=== PATIENT | male | born 1955 | race Caucasian/White ===

== ENCOUNTER 2017-06-30 17:38 | Inpatient (IN) | payer OTHER ==
[~2017-06-30] VITALS: Ht 172.7 cm; Wt 108.0 kg
--- NOTE | ~2017-06-30 | EKG ---
[address] [place] [address] ELECTROCARDIOGRAM REPORT Name: CIROGORDON Kingsley Room #: 201-P ADM IN M.R.#: [id number] Admission: 06/30/17 Attend Phys: Jian Otto MD Discharge: Date of : 57 Report #: [id number] THIS REPORT FOR: //name// [facility] Test Date: 2017-07-01 Test Time: 06:10:16 Pat Name: GORDON TANNER Department: Room: 201 P Gender: M Community Board Member: JESSIE : 1955 Requested By: Lavern Taylor Order Number: [id number] MD: Josiah Rowland Measurements Intervals [place] Rate: 68 P: 21 DE: 164 QRS: -54 QRSD: 135 T: -45 QT: 452 QTc: 481 Interpretive Statements Sinus rhythm Left bundle branch block No previous ECG available for comparison Electronically Signed On 07-01-2017 13:27:54 CDT by Josiah Rowland [email or web address] <ELECTRONICALLY SIGNED> By: Josiah Rowland MD, [facility] 07/01/17 1327 0610 9 Josiah Rowland MD, FACC /EPI
--- NOTE | ~2017-06-30 | EKG ---
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
--- NOTE | ~2017-06-30 | EKG ---
[address] [address] ELECTROCARDIOGRAM REPORT Name: GORDON TANNER Room #: 201-P ADM IN M.R.#: [id number] Admission: 06/30/17 Attend Phys: Jian Otto MD Discharge: Date of : 57 Report #: [id number] THIS REPORT FOR: //name// [facility] Test Date: 2017-07-01 Test Time: 11:26:39 Pat Name: GORDON TANNER Department: Room: 201 P Gender: M Planning Feeder: Justus LATHAM : 1955 Requested By: Ubaldo Mauricio Order Number: [id number] MD: Naseem Gallegos Measurements Intervals [place] Rate: 68 P: 58 OR: 166 QRS: -56 QRSD: 137 T: -52 QT: 456 QTc: 486 Interpretive Statements Sinus rhythm Left bundle branch block No previous ECG available for comparison Electronically Signed On 07-01-2017 14:01:34 CDT by Naseem Gallegos [email or web address] <ELECTRONICALLY SIGNED> By: Naseem Gallegos MD 07/01/17 1401 1126 25 Naseem Gallegos MD /ERUM
--- NOTE | ~2017-06-30 | HC ---
[facility] [place] [address] CONSULTATION Name: GORDON TANNER Room #: 201-P [facility] IN M.R.#: [id number] Admission: 06/30/17 Attend Phys: Jian Otto MD Discharge: 07/02/17 Date of : 57 Report #: [id number] THIS REPORT FOR: //name// CC: Jian Arcos DATE OF SERVICE: 07/01/2017 INDICATION: Chest pain. HISTORY OF PRESENT ILLNESS: This is a 62-year-old gentleman presenting with acute onset of left-sided chest pain radiating down the left arm. This occurred while he was driving. He felt mildly diaphoretic and dyspneic as well. The pain persisted in the ER. He was given aspirin with partial relief. He continued to have discomfort, was treated with pain medications without any effect. The ECG revealed sinus rhythm, nonspecific IVCD and T-wave inversions in the inferolateral leads. The initial troponin was negative, but the second troponin was elevated. He was started on IV heparin and nitroglycerin, with relief of symptoms. Presently, he denies any further chest pains. The peak troponin is 8.97. There is no history of fever or chills. PAST MEDICAL HISTORY: Ulcerative colitis. BPH status post TURP. Denies any history of diabetes mellitus or hypertension. ALLERGIES: CODEINE. MEDICATIONS: Humira subq twice a week. SOCIAL HISTORY: Negative for tobacco use. FAMILY HISTORY: Positive history for heart disease. REVIEW OF SYSTEMS: A full 10-point review of systems performed. Only the pertinent positives and negatives are described in the HPI. PHYSICAL EXAMINATION: INITIAL VITAL SIGNS: Blood pressure was 180/100, heart rate of 84 beats per minute. GENERAL APPEARANCE: A mildly overweight male in no acute respiratory distress. HEAD AND EYES: Normocephalic. Sclerae anicteric. ENT: Oral mucosa moist. NECK: Supple. LUNGS: CTA. CARDIAC: Regular rate and rhythm. S1, S2 positive. ABDOMEN: Soft. EXTREMITIES: No cyanosis, no edema. [facility] [address] [place] [address] CONSULTATION Name: GORDON TANNER Teetee Room #: 201-P [facility] IN M.R.#: [id number] Admission: 06/30/17 Attend Phys: Jian Otto MD Discharge: 07/02/17 Date of : 57 Report #: [id number] ECG reveals sinus rhythm, nonspecific IVCD, T-wave inversions in the inferolateral leads. LABORATORY VALUES: Peak troponin is 8.97. White count is 9.5, hemoglobin is 14.5, platelet count is 292, LDL is 172, creatinine is 1.2. IMPRESSION AND PLAN: 1. Non-ST elevation myocardial infarction. Given his presentation and acute onset, we discussed the pros and cons of noninvasive stress testing versus cardiac catheterization. We will proceed with a cardiac catheterization. 2. Hypertension, elevated blood pressure. We will start a beta desmond at this time. 3. Hypercholesterolemia, undiagnosed. Start statin therapy. 4. Ulcerative colitis, continue with Humira. <ELECTRONICALLY SIGNED> By: Ubaldo Mauricio MD 07/04/17 0840 0818 1231 Ubaldo Mauricio MD /nt
--- NOTE | ~2017-06-30 | EKG ---
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
--- NOTE | ~2017-06-30 | EKG ---
[place] [address] [facility] [place] [address] ELECTROCARDIOGRAM REPORT Name: DEMIANHUIGORDON Room #: 201-P DIS IN M.R.#: [id number] Admission: 06/30/17 Attend Phys: Jian Otto MD Discharge: 07/02/17 Date of : 57 Report #: [id number] THIS REPORT FOR: //name// [facility] Test Date: 2017-07-02 Test Time: 06:08:53 Pat Name: GORDON TANNER Department: Room: 201 P Gender: M General Office Clerk: jlanita : 1955 Requested By: Ubaldo Mauricio Order Number: [id number] MD: Josiah Rowland Measurements Intervals [place] Rate: 73 P: 21 PA: 156 QRS: -55 QRSD: 138 T: -60 QT: 442 QTc: 488 Interpretive Statements Sinus rhythm Left bundle branch block Compared to ECG 07/01/2017 11:26:39 No significant changes Electronically Signed On 07-03-2017 12:54:03 CDT by Josiah Rowland [email or web address] <ELECTRONICALLY SIGNED> By: Josiah Rowland MD, [facility] 07/03/17 1254 0608 0608 Josiah Rowland MD, [facility] /EPI
--- NOTE | ~2017-06-30 | CATHLAB ---
[facility] [address] [place] [address] INVASIVE PROCEDURE REPORT Name: GORDON TANNER Room #: 201-P ADM IN .R.#: [id number] Admission: 06/30/17 Attend Phys: Jian Otto MD Discharge: Date of : 57 Date of Service: 07/01/17 1216 Report #: [id number] THIS REPORT FOR: //name// APPROVED REPORT Study performed: 07/01/2017 09:25:36 Patient Details Patient Status: In-Patient Room #: The patient is a 62 year-old male Event Personnel Ubaldo Mauricio Healthcare Facility Administrator, Gabriel Lam RN, Silvestre Rich Partn[place], Nancy RTR, SECURITY FIELD SUPERVISOR Monitor Procedures Performed Art Access - R femoral artery* Left Heart Cath w/or w/o Coronaries [id number] [facility] BMS Place w/wo Plasty Single CIRC [id number] BMSSINGLE Hemostasis w/ Mynx Indication Non-STEMI , Dyspnea, Chest pain Risk Factors HypercholesterolemiaPhysical Activity, Hypertension Procedure Narrative The patient was brought urgently to the Cardiac Catheterization Laboratory and was prepped and draped in a sterile manner. The Right Groin^ was infiltrated with 1% Lidocaine subcutaneous anesthesia. A PINNACLE 4FR Sheath #[id number] sheath was inserted into the RFA^. Coronary angiography was performed using coronary diagnostic catheters. The right coronary system was accessed and visualized with a JR 4 catheter. The left coronary system was accessed and visualized with a JL 4 catheter. The left ventricle was accessed and visualized with a Pigtail catheter. Left ventricular/Aortic Valve gradient assessed via catheter pullback. Left ventriculogram was performed in PHAN projection. Pre-demployment femoral angiogram was performed . Closure device was deployed with a 6 Fr Mynx. The patient tolerated the procedure well and there were no complications associated with the procedure. There was no hematoma. Intraoperative Conscious Sedation Sedation start time: 09:31 Case end Time: 10:04 [facility] [address] [place] [address] INVASIVE PROCEDURE REPORT Name: GORDON TANNER Teetee Room #: 201-P [facility] IN .R.#: [id number] Admission: 06/30/17 Attend Phys: Jian Otto MD Discharge: Date of : 57 Date of Service: 07/01/17 1216 Report #: [id number] Fentanyl 50 mcg Versed 1.5 mg Fluoro Time: 9.00 minutes Dose: DAP 12632.30 cGycm2 2061 mGy Contrast Type and Amount: Omnipaque 180 ml Coronary Angiography The patient's coronary anatomy is right dominant. Diagnostic Cath Left Main Patent vessel, with no flow-limiting lesions. LAD Moderate size caliber vessel, traveling down the anterior wall and terminating at the apex. There is mild disease in the proximal and mid segments, 20%. Diagonal 1 Patent vessel, mild disease at the ostium. Diagonal 2 Patent vessel, with no flow-limiting lesions. Circumflex Moderate size caliber vessel, supplies 2 obtuse marginal arteries. After the takeoff of the first OM, there is a total occlusion in the midsegment. OM1 Moderate size caliber vessel, with mild disease in the proximal segment. Right Coronary There is moderate to severe stenosis in the mid segment, 70%. R PDA Small-caliber vessel with moderate diffuse disease in the proximal and distal segments, 50%. RPLV Small-caliber vessel, with no flow-limiting lesions. Left Ventriculography The left ventricle is normal in size with decreased contractility. The left ventricular ejection fraction is estimated to be 45%. There is hypokinesis of the mid to distal inferior wall. Hemodynamics The aortic pressure is 150/93 mmHg with a mean of 120 mmHg. The left ventricular pressure is 145/20 mmHg with a mean of mmHg. The left ventricular end diastolic pressure is 29 mmHg. PCI Technique Lesion Anticoagulation was achieved with Angiomax. Patient was preloaded with Brillinta. Percutaneous coronary intervention was performed on the mid circumflex artery segment. The lesion stenosis prior to intervention was 100% with LUZ MARIA 1 flow. A VISTA 6FR XB 3.5 #[id number] Guide Catheter was used to engage the ostium. A Luge Wire .014 x 182CM #[id number] Interventional Guidewire was used to cross the lesion. [facility] [address] [place] [address] INVASIVE PROCEDURE REPORT Name: GORDON TANNER Teetee Room #: 201-P [facility] IN M.R.#: [id number] Admission: 06/30/17 Attend Phys: Jian Otto MD Discharge: Date of : 57 Date of Service: 07/01/17 1216 Report #: [id number] BALLOON DILATION A Balloon catheter Euphora RX 2.5 x 15 #[id number] was inserted and inflated up to 8.00atm for 18seconds. Additional Inflation: 8.00atm for 9seconds. Additional Inflation: 8.00atm for 13seconds. STENT DEPLOYMENT A bare metal stent INTEGRITY RX 2.5 X 26 #[id number] was inserted and inflated up to 14.00atm for 20seconds. Final angiography reveals 10 % stenosis with LUZ MARIA 3 flow. Conclusion 1. Successful insertion of a bare metal stent into the total occlusion in the mid segment of the left circumflex artery, with catholic of LUZ MARIA-3 blood flow. 2. Moderate to severe stenosis in the RCA, recommend medical therapy. 3. Mild segmental LV dysfunction. 4. Recommend risk factor management and dual antiplatelet therapy. <ELECTRONICALLY SIGNED> By: Ubaldo Mauricio MD 07/01/17 1216 15 15 Ubaldo Mauricio MD /INF
[2017-06-30 17:39] VITALS: BP 182/120
[2017-06-30] MEDS ORDERED: HUMIRA40 MG/0.1 SUBQ (17:45)
[2017-06-30 18:04] LABS: ABSOLUTE NEUTROPHILS 6.2 thou/uL (1.4-8.2); BASOPHILS 0.2 % (0.0-2.0); EOSINOPHILS 0.5 % (0.0-3.0); HEMATOCRIT 44.5 % (42.0-52.0); HEMOGLOBIN 14.8 gm/dL (14.0-18.0); LYMPHOCYTES 37.4 % (24.0-44.0); MCH 29.5 pg (26.0-34.0); MCHC 33.3 g/dL (28.0-37.0); MCV 88.4 fL (80.0-100.0); MONOCYTES 7.8 % (1.0-8.0); PLATELET COUNT 340 thou/uL (150-400); POLYS 54.1 % (36.0-66.0); RBC 5.03 mil/uL (4.50-6.00); RDW 14.2 % (10.5-14.5); WBC 11.5 thou/uL (4.0-11.0)
[2017-06-30 18:09] LABS: ANION GAP 10 mmol/L (7-16); BUN 30 mg/dL (7-18); CALCIUM 9.3 mg/dL (8.5-10.1); CHLORIDE 101 mmol/L (98-107); CO2 26 mmol/L (21-32); CREATININE 1.2 mg/dL (0.7-1.3); GLUCOSE 123 mg/dL (74-106); SODIUM 137 mmol/L (136-145)
[2017-06-30 18:17] LABS: ALBUMIN 4.2 g/dL (3.4-5.0); MAGNESIUM 2.2 mg/dL (1.8-2.4); SGOT 24 U/L (15-37); SGPT 35 U/L (30-65); TOTAL BILIRUBIN 0.5 mg/dL (<0.1-1.0); TOTAL PROTEIN 8.6 g/dL (6.4-8.2); TROPONIN-I < 0.04 ng/mL (<0.06)
[2017-06-30 20:44] VITALS: BP 173/104
[2017-06-30 20:55] VITALS: BP 159/99
[2017-07-01] VITALS: BP 159/101
[2017-07-01 01:29] LABS: CHOLESTEROL 260 mg/dL (<200); HDL CHOLESTEROL 73 mg/dL (>40); LDL CHOLESTEROL 172 mg/dL (<100); TC:HDL 3.6 Ratio (Not establshd); TRIGLYCERIDE 75 mg/dL (<150); VLDL 15 mg/dL (<40)
[2017-07-01 01:34] LABS: SERUM ASSESSMENT Clear
[2017-07-01 03:03] VITALS: BP 156/102
[2017-07-01 03:08] LABS: HEMOGLOBIN 14.5 gm/dL (14.0-18.0); MCH 30.1 pg (26.0-34.0); MCHC 34.5 g/dL (28.0-37.0); MCV 87.2 fL (80.0-100.0); RBC 4.82 mil/uL (4.50-6.00); RDW 14.1 % (10.5-14.5); WBC 9.5 thou/uL (4.0-11.0)
[2017-07-01 05:30] VITALS: BP 124/82
[2017-07-01 07:02] VITALS: BP 139/94
[2017-07-01] MEDS ORDERED: TOPROL XL25 MG PO (10:23)
[2017-07-01] MEDS ORDERED: ATORVASTATIN CA40 MG PO (10:23)
[2017-07-01] MEDS ORDERED: ASPIR 8181 MG PO (10:23)
[2017-07-01] MEDS ORDERED: BRILINTA90 MG PO (10:23)
[2017-07-01 11:12] VITALS: BP 133/84
[2017-07-01 21:04] VITALS: BP 127/86
[2017-07-01 21:08] LABS: GLYCOHEMOGLOBIN (HGB A1C) 5.3 % (4.8-5.6)
[2017-07-02 04:41] LABS: ALBUMIN 3.3 g/dL (3.4-5.0); CALCIUM 8.9 mg/dL (8.5-10.1); POTASSIUM 4.4 mmol/L (3.5-5.1); TOTAL BILIRUBIN 0.8 mg/dL (<0.1-1.0)
[2017-07-02 04:52] VITALS: BP 109/71
[2017-07-02 05:10] LABS: TROPONIN-I 22.34 ng/mL (<0.06)
[2017-07-02 05:13] LABS: HEMATOCRIT 40.8 % (42.0-52.0); HEMOGLOBIN 13.7 gm/dL (14.0-18.0); MCH 29.7 pg (26.0-34.0); MCHC 33.6 g/dL (28.0-37.0); MCV 88.2 fL (80.0-100.0); RBC 4.63 mil/uL (4.50-6.00); RDW 14.2 % (10.5-14.5); WBC 8.8 thou/uL (4.0-11.0)
[2017-07-02 08:00] VITALS: BP 122/81
[2017-07-02 11:33] VITALS: BP 122/81
== END 2017-07-02 11:50 | disposition home or self-care (01) | DRG 248 ==
LOC: ER 17:38 → 2N 18:55 → EROBS 18:55 → 2N 20:14
PROVIDERS: Emergency Medicine; Internal Medicine Cardiovascular Disease; Nurse Practitioner Acute Care
DX: I21.4 Non-ST elevation (NSTEMI) myocardial infarction (principal); I50.31 Acute diastolic (congestive) heart failure; K51.90 Ulcerative colitis, unspecified, without complications; I10 Essential (primary) hypertension; E78.00 Pure hypercholesterolemia, unspecified; N40.0 Benign prostatic hyperplasia without lower urinary tract symptoms; Z87.81 Personal history of (healed) traumatic fracture; Z90.79 Acquired absence of other genital organ(s); Z88.5 Allergy status to narcotic agent; Z82.49 Family history of ischemic heart disease and other diseases of the circulatory system
CPT/HCPCS: 10081

== ENCOUNTER 2017-10-17 07:29 | Observation (INO) | payer OTHER ==
[~2017-10-17] VITALS: Ht 172.7 cm; Wt 113.9 kg
[2017-10-17] VITALS (7 sets, daily range): BP systolic 106–135; BP diastolic 60–90
--- NOTE | ~2017-10-17 | H ---
[facility] [place] [address] HISTORY AND PHYSICAL Name: GORDON TANNER Room #: 206-P [facility] M.R.#: [id number] Admission: 10/17/17 Attend Phys: Ubaldo Mauricio MD Discharge: Date of : 57 Report #: [id number] THIS REPORT FOR: //name// CC: Ubaldo Arcos DATE OF SERVICE: 10/17/2017 REASON: Scheduled cardiac catheterization. HISTORY OF PRESENT ILLNESS: This is a 62-year-old gentleman with history of CAD, ulcerative colitis, hypercholesterolemia and BPH, presenting with chest pains. He initially presented in 06/2017 with a non-ST elevation FL. He was found to have a total occlusion of the mid left circumflex artery, undergoing placement of a bare metal stent. There is a severe occlusion in the mid RCA. The patient developed issues with Brilinta secondary to dyspnea. Clinically, he has been experiencing symptoms of dyspnea on exertion and chest discomfort in the left lower chest area. A nuclear stress test in 07/2017 revealed incomplete infarct in the inferior wall with periinfarct ischemia. EF 47%. There is no history of fever, chills or congestion. He presents for an elective cardiac catheterization. ALLERGIES: BRILINTA AND CODEINE. MEDICATIONS: Include Humira, aspirin, Lipitor 40 mg, Plavix 75, and metoprolol 25 mg daily. PAST MEDICAL HISTORY: As above, non-ST elevation myocardial infarction, status post stent to the left circumflex artery. Borderline hypertension, hyperlipidemia, ulcerative colitis. SOCIAL HISTORY: Denies tobacco use. FAMILY HISTORY: Negative for premature CAD. REVIEW OF SYSTEMS: A full 10-point review of systems performed. Only the pertinent positives and negatives are described in the HPI. PHYSICAL EXAMINATION: VITAL SIGNS: Stable. GENERAL APPEARANCE: Overweight male, in no acute distress. HEENT: Normocephalic. Sclerae anicteric. NECK: Supple. LUNGS: Clear to auscultation. CARDIAC: Regular rate and rhythm, S1 and S2 positive. ABDOMEN: Soft, nontender. [facility] [address] [place] [address] HISTORY AND PHYSICAL Name: GORDON TANNER Room #: 206-[facility] M..#: [id number] Admission: 10/17/17 Attend Phys: Ubaldo Mauricio MD Discharge: Date of : 57 Report #: [id number] EXTREMITIES: No cyanosis, no edema. NEUROLOGIC: Alert and oriented x 3. ASSESSMENT AND PLAN: 1. Angina/dyspnea, will require a cardiac catheterization and possible angioplasty. 2. Hypercholesterolemia, continue with Lipitor. 3. Borderline hypertension, continue with the beta desmond. 4. Ulcerative colitis, stable. <ELECTRONICALLY SIGNED> By: Ubaldo Mauricio MD 10/18/17 0751 0830 0843 Ubaldo Mauricio MD /nt
--- NOTE | ~2017-10-17 | EKG ---
[address] [employer] [place] [address] ELECTROCARDIOGRAM REPORT Name: GORDON TANNER Room #: 206-[facility] M.R.#: [id number] Admission: 10/17/17 Attend Phys: Ubaldo Mauricio MD Discharge: Date of : 57 Report #: [id number] THIS REPORT FOR: //name// [facility] Test Date: 2017-10-18 Test Time: 06:09:27 Pat Name: GORDNO TANNER Department: Room: 206 P Gender: M Manager Of Learning: JESSIE : 1955 Requested By: Ubaldo Mauricio Order Number: [id number] MD: Josiah Rowland Measurements Intervals [place] Rate: 85 P: 43 DC: 164 QRS: -53 QRSD: 139 T: -46 QT: 396 QTc: 471 Interpretive Statements Sinus rhythm Left bundle branch block Baseline wander in lead(s) V6 Compared to ECG 10/17/2017 12:50:24 No significant changes Electronically Signed On 10-18-2017 8:40:55 CDT by Josiah Rowland [email or web address] <ELECTRONICALLY SIGNED> By: Josiah Rowland MD, [facility] 10/18/17 0840 8 8 Josiah Rowland MD, [facility] /EPI
--- NOTE | ~2017-10-17 | CATHLAB ---
[facility] [place] [address] INVASIVE PROCEDURE REPORT Name: GORDON TANNER Room #: 206-P ADM IN .R.#: [id number] Admission: 10/17/17 Attend Phys: Ubaldo Mauricio MD Discharge: Date of : 57 Date of Service: 10/17/17 1446 Report #: [id number] THIS REPORT FOR: //name// APPROVED REPORT Study performed: 10/17/2017 09:21:08 Patient Details Patient Status: Out-Patient Room #: The patient is a 62 year-old male Event Personnel Ubaldo Mauricio Supervisor Tank Storage, Arian Crow RN RN, Gabriel Lam RN, Brittany Suarez [place], Christine RTTeetee Monitor Procedures Performed Left Heart Cath w/or w/o Coronaries [id number] [facility] BMS Place w/wo Plasty Single RCA [id number] BMSSINGLE Indication Dyspnea, Unstable angina , Positive stress test, Chest pain Risk Factors Hypercholesterolemia, Coronary Artery DiseaseHypertension Previous Procedures/Diagnoses Previous PCI, Previous [place] Procedure Narrative The Right Groin^ was infiltrated with 1% Lidocaine subcutaneous anesthesia. A PINNACLE 4FR Sheath #[id number] sheath was inserted into the RFA^. Coronary angiography was performed using coronary diagnostic catheters. The right coronary system was accessed and visualized with a JR4 catheter. The left coronary system was accessed and visualized with a JL4 catheter. The left ventricle was accessed and visualized with a PIGTAIL catheter. Left ventricular/Aortic Valve gradient assessed via catheter pullback. Closure device was deployed with a 6 Fr MYNXGRIP 6/7F #[id number]. The patient tolerated the procedure well and there were no complications associated with the procedure. There was no hematoma. Intraoperative Conscious Sedation Sedation start time: 9.43 Case end Time: 10.50 [facility] [place] [address] [place] [address] INVASIVE PROCEDURE REPORT Name: GORDON TANNER Room #: 206-P ADM IN M.R.#: [id number] Admission: 10/17/17 Attend Phys: Ubaldo Mauricio MD Discharge: Date of : 57 Date of Service: 10/17/17 1446 Report #: [id number] Fentanyl 100 mcg Versed 2 mg Fluoro Time: 10.06 minutes Dose: DAP 31966.60 cGycm2 1905 mGy Contrast Type and Amount: Omnipaque 185 ml Coronary Angiography The patient's coronary anatomy is right dominant. Diagnostic Cath Left Main patent vessel, with no flow-limiting lesions. LAD There is mild to moderate diffuse disease in the proximal segment, 30-40%. Diagonal 1 Small-caliber vessel, with no flow-limiting lesions. Circumflex After supplying a moderate size OM1, there is a moderate stenosis in the mid segment, 40%. There is a stent in the midsegment, patent with mild restenosis. 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 OM1 Patent vessel, with no flow-limiting lesions. OM2 Patent vessel, with no flow-limiting lesions. Right Coronary Dominant vessel with ectatic areas in the proximal and mid segments. Between the 2 ectatic areas, there is a severe occlusion of 75%. R PDA Small-caliber vessel, with mild disease, 30%. RPLV Patent vessel, with no flow-limiting lesions. Left Ventriculography Left Ventriculography was not performed. An LVEDP was checked and there is no gradient across the outflow tract. Hemodynamics The aortic pressure is 124/86 mmHg with a mean of 101 mmHg. The left ventricular pressure is 131/17 mmHg with a mean of mmHg. The left ventricular end diastolic pressure is 23 mmHg. There was no gradient across the aortic valve upon pullback. Pullback from the left ventricle to the aorta revealed no gradient across the aortic valve. PCI Technique Lesion Anticoagulation was achieved with Angiomax. Patient was preloaded with Plavix. Percutaneous coronary intervention was performed on the mid right coronary artery. The lesion stenosis prior to intervention was 75% with LUZ MARIA 3 flow. A VISTA 6FR JR 4 #[id number] Guide Catheter was used to engage the ostium. A Luge Wire .014 x 182CM #[id number] Interventional Guidewire was used to cross the lesion. [facility] [address] [place] [address] INVASIVE PROCEDURE REPORT Name: CESARGORDON LUCAS Teetee Room #: 206-P [facility] IN M.R.#: [id number] Admission: 10/17/17 Attend Phys: Ubaldo Mauricio MD Discharge: Date of : 57 Date of Service: 10/17/17 1446 Report #: [id number] BALLOON DILATION A Balloon catheter Euphora RX 2.5 x 12 #[id number] was inserted and inflated up to 10.00atm for 24seconds. STENT DEPLOYMENT A bare metal stent INTEGRITY RX 3.0 X 15 #[id number] was inserted and inflated up to 10.00atm for 31seconds. POST STENT DEPLOYMENT BALLOON DILATION A Balloon catheter TREK NC RX 3.5 X 8 #[id number] was inserted and inflated up to 14.00atm for 21seconds. Additional Inflation: 12.00atm for 20seconds. Final angiography reveals 5 % stenosis with LUZ MARIA 3 flow. Conclusion 1. Successful insertion of a bare metal stent into the mid RCA stenosis. 2. Ectatic areas in the RCA. 3. Patent stent in the mid left circumflex artery with mild restenosis. 4. Recommend aggressive risk factor management and dual antiplatelet therapy. <ELECTRONICALLY SIGNED> By: Ubaldo Mauricio MD 10/17/17 1446 1446 1446 Ubaldo Mauricio MD /INF
--- NOTE | ~2017-10-17 | D ---
[facility] [place] [address] DISCHARGE SUMMARY Name: GORDON TANNER Room #: 206-P [facility] Martín D[place]#: [id number] Admission: 10/17/17 Attend Phys: Ubaldo Mauricio MD Discharge: 10/18/17 Date of : 57 Report #: [id number] THIS REPORT FOR: //name// CC: Ubaldo Arcos DATE OF SERVICE: 10/18/2017 FINAL DIAGNOSES: 1. Unstable angina, status post coronary angioplasty. 2. History of non-ST elevation myocardial infarction. 3. Hypercholesterolemia. 4. Ulcerative colitis. HOSPITAL COURSE: Please see the original H and P for full details. The patient presented with recurrent symptoms of bilateral arm discomfort. Please see the cardiac catheterization report for full details. The stent in the mid circumflex was patent, with evidence of coronary aneurysm. The LAD had mild disease. The RCA is an ectatic vessel in the proximal and mid segments. In between these segments, there is a severe stenosis, 70%. Given his recurrent symptoms, the patient underwent coronary angioplasty with placement of a bare metal stent. The patient tolerated the procedure without any complications. He does report feeling mildly dyspneic with exertion since his initial presentation 3 months ago during the [place]. The plan is to hold the low dose beta desmond at this time. We will have the patient follow up as an outpatient to assess any changes in his respiratory status. FINAL DISPOSITION: Aspirin 81 mg, Plavix 75 mg, Lipitor 40 mg daily and Humira for ulcerative colitis. <ELECTRONICALLY SIGNED> By: Ubaldo Mauricio MD 10/19/17 1006 0759 0848 Ubaldo Mauricio MD /nt
--- NOTE | ~2017-10-17 | EKG ---
[place] [address] [facility] [place] [address] ELECTROCARDIOGRAM REPORT Name: GORDON TANNER [id number] Admission: 10/17/17 Attend Phys: Ubaldo Mauricio MD Discharge: Date of : 57 Report #: [id number] THIS REPORT FOR: //name// [facility] Test Date: 2017-10-17 Test Time: 08:48:29 Pat Name: GORDON TANNER Department: Room: Gender: Seo Coordinator: Justus LATHAM : 1955 Requested By: Ubaldo Mauricio Order Number: [id number] MD: Josiah Rowland Measurements Intervals [place] Rate: 92 P: 1 RI: 162 QRS: -57 QRSD: 136 T: 7 QT: 392 QTc: 485 Interpretive Statements Sinus rhythm Left bundle branch block Compared to ECG 07/02/2017 06:08:53 No significant changes Electronically Signed On 10-17-2017 9:40:41 CDT by Josiah Rowland [email or web address] <ELECTRONICALLY SIGNED> By: Josiah Rowland MD, [facility] 10/17/17 0940 0848 0848 Josiah Rowland MD, FACC /EPI
--- NOTE | ~2017-10-17 | EKG ---
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
[~2017-10-17 07:29] MED LIST: ASPIR 8181 MG PO; ATORVASTATIN CA40 MG PO; BRILINTA90 MG PO; HUMIRA40 MG/0.1 SUBQ; TOPROL XL25 MG PO
[2017-10-17 08:10] LABS: HEMATOCRIT 44.5 % (42.0-52.0); HEMOGLOBIN 15.3 gm/dL (14.0-18.0); MCH 29.9 pg (26.0-34.0); MCHC 34.3 g/dL (28.0-37.0); MCV 87.2 fL (80.0-100.0); RBC 5.11 mil/uL (4.50-6.00); RDW 13.5 % (10.5-14.5); WBC 5.3 thou/uL (4.0-11.0)
[2017-10-17] MEDS ORDERED: PLAVIX 75 MG TA75 M1 PO (08:16)
[2017-10-17 08:20] LABS: CALCIUM 9.6 mg/dL (8.5-10.1); CREATININE 1.1 mg/dL (0.7-1.3); POTASSIUM 4.1 mmol/L (3.5-5.1)
[2017-10-18 03:22] LABS: HEMATOCRIT 43.6 % (42.0-52.0); MCH 29.7 pg (26.0-34.0); MCHC 34.4 g/dL (28.0-37.0); MCV 86.2 fL (80.0-100.0); RBC 5.06 mil/uL (4.50-6.00); RDW 13.5 % (10.5-14.5); WBC 4.9 thou/uL (4.0-11.0)
[2017-10-18 03:56] LABS: ALBUMIN 3.7 g/dL (3.4-5.0); ANION GAP 11 mmol/L (7-16); BUN 18 mg/dL (7-18); CALCIUM 9.4 mg/dL (8.5-10.1); CHLORIDE 102 mmol/L (98-107); CO2 26 mmol/L (21-32); GLUCOSE 93 mg/dL (74-106); SGOT 24 U/L (15-37); SGPT 53 U/L (30-65); SODIUM 139 mmol/L (136-145); TOTAL BILIRUBIN 0.6 mg/dL (<0.1-1.0); TOTAL PROTEIN 7.9 g/dL (6.4-8.2); TROPONIN-I <0.06 ng/mL (<0.06)
[2017-10-18 05:15] VITALS: BP 117/78
[2017-10-18 07:20] VITALS: BP 143/83
[2017-10-18 08:13] VITALS: BP 143/83
[2017-10-18 08:16] VITALS: BP 143/83
== END 2017-10-18 10:20 | disposition home or self-care (01) ==
LOC: CATH 07:29 → 2N 10:19 → CATH 11:32 → 2N 10-18 10:20
PROVIDERS: Internal Medicine Cardiovascular Disease
DX: I25.110 Atherosclerotic heart disease of native coronary artery with unstable angina pectoris (principal); I21.4 Non-ST elevation (NSTEMI) myocardial infarction; E78.5 Hyperlipidemia, unspecified; K51.90 Ulcerative colitis, unspecified, without complications; E78.00 Pure hypercholesterolemia, unspecified; R06.00 Dyspnea, unspecified; Z79.899 Other long term (current) drug therapy; Z95.5 Presence of coronary angioplasty implant and graft; Z79.01 Long term (current) use of anticoagulants

== ENCOUNTER → 2018-03-10 | Outpatient (CLI) | payer OTHER ==
[~2018-03-10] MED LIST changes: +IMDUR 30 MG TAB30 M1 PO; +LASIX 40 MG TAB40 M1 PO; +PLAVIX 75 MG TA75 M1 PO
--- NOTE | ~2018-03-10 | SLE ---
[facility] [place] [address] POLYSOMNOGRAPHY STUDY Name: GORDON TANNER Room #: REG [facility].#: [id number] Admission: 03/10/18 Attend Phys: Matt Whelan MD Discharge: Date of : 57 Report #: [id number] THIS REPORT FOR: //name// CC: Matt Arcos DATE OF SERVICE: 03/10/2018 ATTENDING PHYSICIAN: Dr. Ubaldo Mauricio. The patient is a 63-year-old who weighs 240 pounds and is 65 inches tall with a BMI of 39.9. The patient's Fl[place] score was 5. The patient underwent a sleep study at [facility]. During the night study, the patient spent 396 minutes in bed and slept for 272 minutes with a sleep efficiency of 68.7%. Sleep latency was 13.9 minutes with a REM latency of 84.9 minutes. Overall, sleep architecture showed normal stage 1 sleep, increased stage 2 sleep, reduced N3 sleep and normal REM sleep. During the night study, the patient has 5 obstructive apneas and 5 central apneas, no mixed apneas and 50 hypopneas. The patient's apnea hypopnea index was 13 per hour with a REM index of 28 per hour and a supine index of 73 per hour. EKG monitoring revealed average heart rate of 68 beats per minute. Normal sinus rhythm. However, PVCs were seen during the study. No sustained arrhythmias observed. Maximum heart rate was 90 beats per minute. PLMs were seen at an index of 7 per hour and 2 per hour caused EEG arousals. Nocturnal oximetry study revealed an average oxygen saturation of 94% with a lowest of 88%. Only 0.8 minutes were spent at oxygen saturation of less than 90%. Due to low AHI, the patient did not meet the split night criteria for CPAP initiation. IMPRESSION: 1. Mild sleep apnea-hypopnea syndrome with moderate increase during rapid eye movement sleep and further worsening during supine sleep. Total apnea hypopnea index 13 per hour, rapid eye movement apnea hypopnea index of 28.6 per hour and a supine apnea hypopnea index of 73 per hour. 2. No clinically significant nocturnal hypoxia. 3. No clinically significant periodic limb movements. [facility] [address] [place] [address] POLYSOMNOGRAPHY STUDY Name: GORDON TANNER Room #: REG [facility].#: [id number] Admission: 03/10/18 Attend Phys: Matt Whelan MD Discharge: Date of : 57 Report #: [id number] RECOMMENDATIONS: 1. The patient would benefit from treatment of sleep apnea with either oral appliance or a trial of CPAP titration. 2. If the patient undergoes CPAP titration, then he should be followed up in 4-6 weeks to assess compliance with CPAP and to document clinical improvement. 3. Avoid supine sleep. 4. Avoid INTERLOCKING AND SIGNAL MECHANIC depressants. 5. Cautioned regarding driving until symptoms of sleep apnea resolve with the above recommendations. <ELECTRONICALLY SIGNED> By: Matt Whelan MD 03/12/18 2126 1226 1247 Matt Whelan MD /nt
== END ==
LOC: SLEEPLAB 02-24 11:59
DX: G47.30 Sleep apnea, unspecified (principal)

== ENCOUNTER → 2018-11-09 | Outpatient (CLI) | payer OTHER ==
--- NOTE | 2018-11-09 10:42 | 2DMMODE ---
[facility] [place] [address] 2 D/M-MODE ECHOCARDIOGRAM Name: GORDON TANNER Room #: REG [facility]#: [id number] Admission: 11/09/18 Attend Phys: Ubaldo Mauricio MD Discharge: Date of : 57 Date of Service: 11/09/18 1041 Report #: [id number] THIS REPORT FOR: //name// APPROVED REPORT Study performed: 11/09/2018 09:39:44 EXAM: Comprehensive 2D, Doppler, and color-flow Echocardiogram Patient Location: Bedside/holding Status: routine BSA: 2.21 HR: 76 bpm BP: 138/75 mmHg Rhythm: NSR Other Information Study Quality: Adequate Technically limited study due to body habitus. Indications CAD Stent x2 2D Dimensions RVDd: 32.71 mm IVSd: 12.14 (7-11mm) LVOT Diam: 23.60 (18-24mm) LVDd: 55.16 mm PWd: 11.76 (7-11mm) Ascending Ao: 34.05 (22-36mm) LVDs: 46.72 (25-40mm) Aortic Root: 37.45 mm IVC: 21.00 mm Volumes Left Atrial Volume (Systole) Single Plane 4CH: 24.64 mL Single Plane 2CH: 22.52 mL LA ESV Index: 12.00 mL/m2 Aortic Valve AoV Peak Tyrone.: 1.11 m/s AO Peak Gr.: 7.03 mmHg LVOT Max P.16 mmHg LVOT Max V: 0.89 m/s [place] Vmax: 3.51 cm2 Mitral Valve [facility] [address] [address] 2 D/M-MODE ECHOCARDIOGRAM Name: GORDON TANNER Room #: REG CL [facility]#: [id number] Admission: 11/09/18 Attend Phys: Ubaldo Mauricio MD Discharge: Date of : 57 Date of Service: 11/09/18 1041 Report #: [id number] E/A Ratio: 0.6 MV Decel. Time: 204.58 ms MV E Max Tyrone.: 0.40 m/s MV A Tyrone.: 0.72 m/s MV PHT: 59.33 ms IVRT: 159.17 ms Pulmonary Valve PV Peak Tyrone.: 1.03 m/s PV Peak Gr.: 4.27 mmHg Pulmonary Vein P Vein S: 0.34 m/s P Vein A: 0.23 m/s P Vein D: 0.25 m/s P Vein A Dur.: 141.9 msec P Vein S/D Ratio: 1.36 Tricuspid Valve RAP Estimate: 5.00 mmHg Left Ventricle Left ventricle is at the upper limits of normal. Borderline concentric left ventricular hypertrophy. Left ventricular systolic function is moderately decreased. LVEF is 35-40%. Mild diastolic dysfunction is present (impaired relaxation pattern). Right Ventricle The right ventricle is normal size. The right ventricular systolic function is normal. Atria The left atrium size is normal. The right atrium size is normal. Aortic Valve The aortic valve is normal in structure. Trace aortic regurgitation. There is no aortic valvular stenosis. Mitral Valve The mitral valve is normal in structure. Trace to mild mitral regurgitation. No evidence of mitral valve stenosis. Tricuspid Valve The tricuspid valve is normal in structure. Trace tricuspid regurgitation. Unable to assess PA pressure. Pulmonic Valve The pulmonary valve is normal in structure. There is no pulmonic [facility] [address] [place] [address] 2 D/M-MODE ECHOCARDIOGRAM Name: GORDON TANNER Room #: REG CL [facility].#: [id number] Admission: 11/09/18 Attend Phys: Ubaldo Mauricio MD Discharge: Date of : 57 Date of Service: 11/09/18 1041 Report #: [id number] valvular regurgitation. Great Vessels The aortic root is normal in size. IVC is upper limits of normal in size and collapses >50% with inspiration. Pericardium There is no pericardial effusion. <Conclusion> Left ventricle is at the upper limits of normal. Borderline concentric left ventricular hypertrophy. Left ventricular systolic function is moderately decreased. Mild diastolic dysfunction is present (impaired relaxation pattern). The right ventricle is normal size. The left atrium size is normal. The aortic valve is normal in structure. Trace aortic regurgitation. Trace to mild mitral regurgitation. Trace tricuspid regurgitation. <ELECTRONICALLY SIGNED> By: Ubaldo Mauricio MD 11/09/18 1041 104 40 Ubaldo Mauricio MD /INF
== END ==
LOC: CV 09:15
DX: I34.0 Nonrheumatic mitral (valve) insufficiency (principal); Z95.5 Presence of coronary angioplasty implant and graft

== ENCOUNTER → 2019-05-18 | Outpatient (CLI) | payer OTHER ==
[~2019-05-18] MED LIST changes: +CARVEDILOL12.5 MG PO; +COZAAR 25 MG TA25 M2 PO; +LIPITOR40 MG PO; +METFORMIN HCL500 M3 PO
== END ==
LOC: NUC 05-02 07:30 → EDSTATUS 05-02 12:26 → NUC 05-02 13:23 → SJCVCIMAG 09:27
DX: R00.0 Tachycardia, unspecified (principal); I25.810 Atherosclerosis of coronary artery bypass graft(s) without angina pectoris; I42.9 Cardiomyopathy, unspecified; E78.00 Pure hypercholesterolemia, unspecified; I11.0 Hypertensive heart disease with heart failure; I50.9 Heart failure, unspecified; I25.2 Old myocardial infarction; Z95.1 Presence of aortocoronary bypass graft; Z88.5 Allergy status to narcotic agent; Z88.8 Allergy status to other drugs, medicaments and biological substances; Z79.82 Long term (current) use of aspirin; Z79.899 Other long term (current) drug therapy

== ENCOUNTER → 2019-05-29 | Outpatient (CLI) | payer OTHER ==
[~2019-05-29] VITALS: Ht 172.7 cm; Wt 115.0 kg
[2019-05-29 07:29] VITALS: BP 124/78
[2019-05-29 07:39] LABS: HEMATOCRIT 45.7 % (42.0-52.0); HEMOGLOBIN 15.1 gm/dL (14.0-18.0); MCH 29.8 pg (26.0-34.0); MCV 90.2 fL (80.0-100.0); RBC 5.07 mil/uL (4.50-6.00); RDW 13.6 % (10.5-14.5); WBC 6.5 thou/uL (4.0-11.0)
[2019-05-29 07:41] LABS: CALCIUM 9.9 mg/dL (8.5-10.1); CREATININE 1.2 mg/dL (0.7-1.3); POTASSIUM 3.9 mmol/L (3.5-5.1)
--- NOTE | 2019-05-29 08:32 | EKG ---
[facility] [place] [address] ELECTROCARDIOGRAM REPORT Name: GORDON TANNER Room #: REG [facility] M..#: [id number] Admission: 05/29/19 Attend Phys: Ubaldo Mauricio MD Discharge: Date of : 57 Report #: [id number] THIS REPORT FOR: cc: Sergei Arcos MD, Michael B. MD Lundgren,Josiah Tanner MD FAC ~ THIS REPORT FOR: //name// [facility] Test Date: 2019-05-29 Test Time: 07:24:18 Pat Name: GORDON TANNER Department: Room: Gender: Turn Down Worker: Justus LATHAM : 1955 Requested By: Ubaldo Mauricio Order Number: [id number] MD: Josiah Rowland Measurements Intervals [place] Rate: 80 P: -24 IN: 172 QRS: -54 QRSD: 145 T: 29 QT: 406 QTc: 469 Interpretive Statements Sinus rhythm Ventricular premature complex Left bundle branch block Compared to ECG 10/27/2017 17:08:13 Ventricular premature complex(es) now present Sinus tachycardia no longer present v Electronically Signed On 05-29-2019 8:31:34 STUDENT SUCCESS COACH by Josiah Rowland [email or web address] <ELECTRONICALLY SIGNED> By: Josiah Rowland MD, [facility] 05/29/19 0831 Josiah Rowland MD, [facility] /EPI
--- NOTE | 2019-05-29 17:33 | CATHLAB ---
[facility] [place] [address] INVASIVE PROCEDURE REPORT Name: GORDON TANNER Room #: REG JULIEN Colon.#: [id number] Admission: 05/29/19 Attend Phys: Ubaldo Mauricio MD Discharge: Date of : 57 Report #: [id number] THIS REPORT FOR: cc: Sergei Arcos MD, Michael B. MD Park, Jin S. MD ~ APPROVED REPORT Study performed: 05/29/2019 08:02:30 Patient Details Patient Status: Out-Patient Room #: The patient is a 64 year-old male Event Personnel Ubaldo Mauricio Stable Manager, Nanette Hirsch RN RN, Loly Fonseca RTR Elan Paredes Sherra RTTeetee Monitor Procedures Performed Art Access - R femoral artery* Left Heart Cath w/or w/o Coronaries [id number] [facility] [address] Initial Mod Sed Same Phys/QHP Gr5y 197130 74057 Mod Sed Same Phys/QHP Ea [id number] Indication Positive stress test, Chest pain Risk Factors Hypercholesterolemia, Coronary Artery DiseaseHypertension, Diabetes Previous Procedures/Diagnoses Previous PCI, Previous [place] Procedure Narrative The Right Groin^ was infiltrated with 1% Lidocaine subcutaneous anesthesia. A PINNACLE 4FR Sheath #[id number] sheath was inserted into the RFA^. Coronary angiography was performed using coronary diagnostic catheters. The right coronary system was accessed and visualized with a JR4 catheter. The left coronary system was accessed and visualized with a JL4 catheter. The left ventricle was accessed and visualized with a pigtail catheter. Hemostasis was obtained with manual pressure following sheath removal without any complications. The patient tolerated the procedure well and there were no complications associated with the procedure. There was no hematoma. [facility] [address] [place] [address] INVASIVE PROCEDURE REPORT Name: CESARLANCEGORDON ASHLYN Room #: REG CL [facility].#: [id number] Admission: 05/29/19 Attend Phys: Ubaldo Mauricio MD Discharge: Date of : 57 Report #: [id number] Intraoperative Conscious Sedation Sedation start time: 823 Case end Time: 914 Fentanyl 50 mcg Versed 1 mg Fluoro Time: 5.80 minutes Dose: DAP 6906.00 cGycm2 1776 mGy Contrast Type and Amount: Omnipaque 80 ml Coronary Angiography The patient's coronary anatomy is right dominant. Diagnostic Cath Left Main This is a large caliber vessel, patent with no flow-limiting lesions. LAD The LAD is a moderate size caliber vessel, traversing the anterior wall and wrapping around the apex. There is mild disease in the proximal and mid segments, 20%. Diagonal 1 This is a small to moderate size caliber vessel, with mild disease proximally. Diagonal 2 This is a small to moderate size caliber vessel, with mild disease proximally. Circumflex This is a moderate size caliber vessel, supplying 2 OM vessels. Within the mid segment of the left circumflex artery, there is a previously placed stent. The stent itself is patent with mild restenosis. Within the mid portion of the stent, there is an aneurysm. Appears to be slightly increased compared to his last catheterization approximately 2 years ago. OM1 This is a moderate size caliber vessel, patent with no flow-limiting lesions. OM2 This is a small to moderate size caliber vessel, with no flow-limiting lesions. Right Coronary The RCA is a dominant vessel with ectatic segments. There is a stent in the midsegment, patent with mild restenosis. R PDA This is a small to moderate size caliber vessel, with mild to moderate disease. RPLV This is a small to moderate size caliber vessel, with no flow-limiting lesions. Left Ventriculography Left Ventriculography was not performed. Ejection Fraction was 40% based off patient's Nuclear Cardiac Stress Test. An LVEDP was measured and there is no gradient across the outflow tract. [facility] [address] [place] [address] INVASIVE PROCEDURE REPORT Name: GORDON TANNER Room #: REG [facility].R.#: [id number] Admission: 05/29/19 Attend Phys: Ubaldo Mauricio MD Discharge: Date of : 57 Report #: [id number] Hemodynamics The aortic pressure is 125/79 mmHg with a mean of 80 mmHg. The left ventricular pressure is 129/13 mmHg with a mean of mmHg. The left ventricular end diastolic pressure is 21 mmHg. There was no gradient across the aortic valve upon pullback. Conclusion 1. There are patent stents in the mid left circumflex and mid RCA. 2. 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 3. There is mild disease in the LAD. 4. History of moderate cardiomyopathy. 5. Recommend aggressive risk factor management. 6. Recommend CV surgery consultation for aneurysm in the mid left circumflex artery. <ELECTRONICALLY SIGNED> By: Ubaldo Mauricio MD 05/29/19 1732 173 173 Ubaldo Mauricio MD /INF
== END | disposition home or self-care (01) ==
LOC: CATH 06:53
PROVIDERS: Internal Medicine Cardiovascular Disease
DX: R07.9 Chest pain, unspecified (principal); R94.39 Abnormal result of other cardiovascular function study; I25.10 Atherosclerotic heart disease of native coronary artery without angina pectoris; I25.41 Coronary artery aneurysm; I10 Essential (primary) hypertension; E11.9 Type 2 diabetes mellitus without complications; E78.00 Pure hypercholesterolemia, unspecified; I11.0 Hypertensive heart disease with heart failure; I50.9 Heart failure, unspecified; E78.5 Hyperlipidemia, unspecified; Z82.49 Family history of ischemic heart disease and other diseases of the circulatory system; Z87.442 Personal history of urinary calculi; N40.0 Benign prostatic hyperplasia without lower urinary tract symptoms; Z98.890 Other specified postprocedural states; Z87.19 Personal history of other diseases of the digestive system; Z88.6 Allergy status to analgesic agent; Z79.82 Long term (current) use of aspirin; Z79.899 Other long term (current) drug therapy

== ENCOUNTER → 2020-04-08 | Outpatient (CLI) | payer OTHER | LOC: SJCVCIMAG 06:42 | PROVIDERS: ATTEND Internal Medicine Cardiovascular Disease | DX: R94.31 Abnormal electrocardiogram [ECG] [EKG] (principal); I34.0 Nonrheumatic mitral (valve) insufficiency; I45.4 Nonspecific intraventricular block ==

== ENCOUNTER → 2020-04-18 | Outpatient (CLI) | payer OTHER | LOC: SJCVCIMAG 09:51 | PROVIDERS: ATTEND Internal Medicine Cardiovascular Disease | DX: R00.0 Tachycardia, unspecified (principal); I42.9 Cardiomyopathy, unspecified; I25.10 Atherosclerotic heart disease of native coronary artery without angina pectoris; I11.0 Hypertensive heart disease with heart failure; I50.9 Heart failure, unspecified; E78.5 Hyperlipidemia, unspecified; E11.9 Type 2 diabetes mellitus without complications; I25.2 Old myocardial infarction; Z79.4 Long term (current) use of insulin; Z79.82 Long term (current) use of aspirin; Z79.899 Other long term (current) drug therapy; Z98.61 Coronary angioplasty status ==

== ENCOUNTER → 2020-05-22 | Outpatient (CLI) | payer OTHER ==
[~2020-05-22] MED LIST changes: +RANEXA500 MG PO
== END ==
LOC: SJCVCIMAG 12:01
PROVIDERS: ATTEND Internal Medicine Cardiovascular Disease
DX: I65.23 Occlusion and stenosis of bilateral carotid arteries (principal)

== ENCOUNTER → 2020-05-23 | Outpatient (CLI) | payer OTHER ==
[~2020-05-23] VITALS: Ht 172.7 cm; Wt 116.0 kg
[2020-05-23 08:44] VITALS: BP 138/82
--- NOTE | 2020-05-23 12:38 | CATHLAB ---
[facility] [place] [address] INVASIVE PROCEDURE REPORT Name: GORDON TANNER Room #: REG JULIEN James.#: [id number] Admission: 05/23/20 Attend Phys: Ubaldo Mauricio MD Discharge: Date of : 57 Report #: [id number] THIS REPORT FOR: cc: Sergei Arcos MD, Michael B. MD Park, Jin S. MD ~ APPROVED REPORT Study performed: 05/23/2020 09:34:52 Patient Details Patient Status: Out-Patient Room #: The patient is a 65 year-old male Event Personnel Ubaldo Mauricio [employer], Geovanni Cardenas RTR Scrub, Jessica Ansari RTR Monitor, Greta Zapata RN RN, Roselia Hermosillo RN consultants intern Performed Art Access - R femoral artery* Left Heart Cath w/or w/o Coronaries [id number] [facility] [address] Initial Mod Sed Same Phys/QHP Gr5y 768962 34904 Mod Sed Same Phys/QHP Ea 824178 Hemostasis with Manual pressure Indication Dyspnea, Chest pain Risk Factors Obesity, Hypercholesterolemia, Coronary Artery DiseaseHypertension Previous Procedures/Diagnoses Previous PCI, Previous [place] Procedure Narrative The Right Groin^ was infiltrated with 1% Lidocaine subcutaneous anesthesia. A PINNACLE 4FR Sheath #[id number] sheath was inserted into the RFA^. Coronary angiography was performed using coronary diagnostic catheters. The right coronary system was accessed and visualized with a JR4 catheter. The left coronary system was accessed and visualized with a JL4 catheter. The left ventricle was accessed and visualized with a PIGTAIL catheter. Hemostasis was obtained with manual pressure following sheath removal without any complications. [facility] [address] [place] [address] INVASIVE PROCEDURE REPORT Name: CIROGORDON Room #: REG CL [facility]#: [id number] Admission: 05/23/20 Attend Phys: Ubaldo Mauricio MD Discharge: Date of : 57 Report #: [id number] There was no hematoma. Intraoperative Conscious Sedation Sedation start time: 951 Case end Time: 1040 Fentanyl 50 mcg Versed 1 mg Fluoro Time: 5.30 minutes Dose: DAP 2243.00 cGycm2 8692 mGy Contrast Type and Amount: Omnipaque 100 ml Coronary Angiography The patient's coronary anatomy is right dominant. Diagnostic Cath Left Main There is mild disease in the distal segment of the left main artery. LAD This is a moderate-sized caliber vessel, traverses the anterior wall and terminates at the apex. There is mild to moderate disease in the proximal and mid segments, 30 to 40%. Diagonal 1 This is a small to moderate-sized caliber vessel, with mild disease proximally. Diagonal 2 This is a small to moderate-sized caliber vessel, with mild disease proximally. Circumflex This is a moderate-sized caliber vessel, with a moderate stenosis in the midsegment, 40%. Just after the takeoff of the first OM, there is a stent in the mid segment, patent with minimal restenosis. Within the stented area there is a an aneurysm, unchanged from prior procedures. OM1 This is a moderate-sized caliber vessel, with no flow-limiting lesions. OM2 This is a small to moderate-sized caliber vessel, patent with no flow-limiting lesions. Right Coronary The RCA has ectatic regions in the midsegment. There is a stent in the midsegment with mild restenosis. R PDA This is a small to moderate-sized caliber vessel with moderate disease proximally. RPLV This is a small to moderate-sized caliber vessel, with no flow-limiting lesions. Left Ventriculography Left Ventriculography was not performed. Ejection Fraction was 35% based off patient's Echocardiogram. An LVEDP was measured and there is no gradient across the outflow tract. Hemodynamics The aortic pressure is 122/71 mmHg with a mean of 92 mmHg. [facility] [address] [place] [address] INVASIVE PROCEDURE REPORT Name: CESARLANCEGORDON Room #: REG CL M.R.#: [id number] Admission: 05/23/20 Attend Phys: Ubaldo Mauricio MD Discharge: Date of : 57 Report #: [id number] ventricular pressure is 140/7 mmHg with a mean of mmHg. The left ventricular end diastolic pressure is 18 mmHg. Conclusion 1. There is mild to moderate disease in the LAD. 2. There is a patent stent in the mid segment of the left circumflex artery, with a previously known aneurysm in the stented area. 3. There is a patent stent in the RCA with mild restenosis. 4. There is at least moderate cardiomyopathy. 5. Recommend guideline directed medical therapy and risk factor management. <ELECTRONICALLY SIGNED> By: Ubaldo Mauricio MD 05/23/20 1238 1238 1238 Ubaldo Mauricio MD /INF
== END | disposition home or self-care (01) ==
LOC: CATH 07:50
PROVIDERS: ATTEND Internal Medicine Cardiovascular Disease
DX: R07.9 Chest pain, unspecified (principal); R06.00 Dyspnea, unspecified; I25.10 Atherosclerotic heart disease of native coronary artery without angina pectoris; T82.855A Stenosis of coronary artery stent, initial encounter; I42.9 Cardiomyopathy, unspecified; I25.2 Old myocardial infarction; I10 Essential (primary) hypertension; E78.00 Pure hypercholesterolemia, unspecified; E66.9 Obesity, unspecified; N40.0 Benign prostatic hyperplasia without lower urinary tract symptoms; Z98.890 Other specified postprocedural states; Z79.899 Other long term (current) drug therapy; Z79.82 Long term (current) use of aspirin; Z88.8 Allergy status to other drugs, medicaments and biological substances

== ENCOUNTER → 2020-07-02 | Outpatient (CLI) | payer OTHER | LOC: MRI 08:04 | PROVIDERS: ATTEND Internal Medicine Cardiovascular Disease | DX: M48.02 Spinal stenosis, cervical region (principal); M25.78 Osteophyte, vertebrae; M50.30 Other cervical disc degeneration, unspecified cervical region ==

== ENCOUNTER → 2020-10-16 | Outpatient (CLI) | payer OTHER ==
[~2020-10-16] VITALS: Ht 172.7 cm; Wt 117.9 kg
[2020-10-16 13:59] VITALS: BP 126/65
--- NOTE | 2020-10-16 14:18 | NUR ---
Pain Clinic Assessment: 1. History of Osteoarthritis: Not Applicable History of Rheumatoid Arthritis: Not Applicable 2. Height: 5 ft. 8 in. 172.7 cm. Weight: 260.0 lb. oz. 117.936 kg. Patient's BMI: 39.5 3. Vital Signs: BP: 126/65 Pulse: 94 Resp: 20 Temp: 02 Sat: 98 ECG Mon: 4. Pain Intensity: 0 5. Fall Risk: Dizziness: N Needs help standing or walking: N Fallen in the last 3 months: N Fall risk comments: 6. Patient on Blood Thinner: None 7. History of Hypertension: Y 8. Opioid Therapy greater than 6 weeks: N Opiate Contract Signed: 9. Risk Assessment Tool Provided: 0 LOW RISK 10. Functional Assessment Tool: 11. Recreational Drug Use: Never Drug Type: Tobacco Use: Never Smoker Tobacco Type: Amount or Packs/day: How Many Years: Alcohol Use: Yes Frequency: Special Occasions Quant: 1
== END ==
LOC: PAIN 09:52
PROVIDERS: ATTEND Anesthesiology Pain Medicine
DX: M79.602 Pain in left arm (principal); M54.2 Cervicalgia; I25.10 Atherosclerotic heart disease of native coronary artery without angina pectoris; R06.09 Other forms of dyspnea; I10 Essential (primary) hypertension; Z88.5 Allergy status to narcotic agent; Z88.1 Allergy status to other antibiotic agents; Z72.89 Other problems related to lifestyle; Z79.899 Other long term (current) drug therapy; Z79.891 Long term (current) use of opiate analgesic

== ENCOUNTER → 2020-10-27 | Outpatient (CLI) | payer OTHER ==
[~2020-10-27] VITALS: Ht 172.7 cm; Wt 119.9 kg
[2020-10-27 09:43] VITALS: BP 142/99
--- NOTE | 2020-10-27 09:51 | NUR ---
Pain Clinic Assessment: 1. History of Osteoarthritis: Not Applicable History of Rheumatoid Arthritis: Not Applicable 2. Height: 5 ft. 8 in. 172.7 cm. Weight: 264.4 lb. oz. 119.931 kg. Patient's BMI: 40.2 3. Vital Signs: BP: 142/99 Pulse: 84 Resp: 20 Temp: 02 Sat: 100 ECG Mon: 4. Pain Intensity: 3 5. Fall Risk: Dizziness: N Needs help standing or walking: N Fallen in the last 3 months: N Fall risk comments: 6. Patient on Blood Thinner: None 7. History of Hypertension: Y 8. Opioid Therapy greater than 6 weeks: N Opiate Contract Signed: 9. Risk Assessment Tool Provided: 0 LOW RISK 10. Functional Assessment Tool: 11. Recreational Drug Use: Never Drug Type: Tobacco Use: Never Smoker Tobacco Type: Amount or Packs/day: How Many Years: Alcohol Use: Yes Frequency: Weekly Quant: 3
== END | disposition home or self-care (01) ==
LOC: PAIN 06:57
PROVIDERS: ATTEND Anesthesiology Pain Medicine
DX: M54.12 Radiculopathy, cervical region (principal); G89.29 Other chronic pain; I10 Essential (primary) hypertension; I25.10 Atherosclerotic heart disease of native coronary artery without angina pectoris; E78.5 Hyperlipidemia, unspecified; N40.0 Benign prostatic hyperplasia without lower urinary tract symptoms; Z98.890 Other specified postprocedural states; Z79.899 Other long term (current) drug therapy; Z87.442 Personal history of urinary calculi; Z88.6 Allergy status to analgesic agent; Z88.8 Allergy status to other drugs, medicaments and biological substances

== ENCOUNTER → 2020-11-27 | Outpatient (CLI) | payer OTHER ==
[~2020-11-27] VITALS: Ht 172.7 cm; Wt 120.3 kg
[2020-11-27 09:21] VITALS: BP 145/87
--- NOTE | 2020-11-27 09:29 | NUR ---
Pain Clinic Assessment: 1. History of Osteoarthritis: Not Applicable History of Rheumatoid Arthritis: Not Applicable 2. Height: 5 ft. 8 in. 172.7 cm. Weight: 265.2 lb. oz. 120.294 kg. Patient's BMI: 40.3 3. Vital Signs: BP: 145/87 Pulse: 77 Resp: 16 Temp: 02 Sat: 99 ECG Mon: 4. Pain Intensity: 0 5. Fall Risk: Dizziness: N Needs help standing or walking: N Fallen in the last 3 months: N Fall risk comments: 6. Patient on Blood Thinner: None 7. History of Hypertension: Y 8. Opioid Therapy greater than 6 weeks: N Opiate Contract Signed: 9. Risk Assessment Tool Provided: 0 LOW RISK 10. Functional Assessment Tool: 11. Recreational Drug Use: Never Drug Type: Tobacco Use: Never Smoker Tobacco Type: Amount or Packs/day: How Many Years: Alcohol Use: Yes Frequency: Special Occasions Quant:
== END ==
LOC: PAIN 08:45
PROVIDERS: ATTEND Anesthesiology Pain Medicine
DX: M54.13 Radiculopathy, cervicothoracic region (principal); Z79.82 Long term (current) use of aspirin; Z79.899 Other long term (current) drug therapy; Z88.8 Allergy status to other drugs, medicaments and biological substances

== ENCOUNTER → 2020-12-22 | Outpatient (CLI) | payer OTHER ==
[~2020-12-22] VITALS: Ht 172.7 cm; Wt 118.5 kg
[2020-12-22 14:33] VITALS: BP 118/75
--- NOTE | 2020-12-22 15:05 | NUR ---
[facility] Assessment: 1. History of Osteoarthritis: Not Applicable History of Rheumatoid Arthritis: Not Applicable 2. Height: 5 ft. 8 in. 172.7 cm. Weight: 261.2 lb. oz. 118.480 kg. Patient's BMI: 39.7 3. Vital Signs: BP: 118/75 Pulse: 78 Resp: 16 Temp: 02 Sat: 97 ECG Mon: 4. Pain Intensity: 2 5. Fall Risk: Dizziness: N Needs help standing or walking: N Fallen in the last 3 months: N Fall risk comments: 6. Patient on Blood Thinner: None 7. History of Hypertension: Y 8. Opioid Therapy greater than 6 weeks: N Opiate Contract Signed: 9. Risk Assessment Tool Provided: 0 LOW RISK 10. Functional Assessment Tool: 11. Recreational Drug Use: Never Drug Type: Tobacco Use: Never Smoker Tobacco Type: Amount or Packs/day: How Many Years: Alcohol Use: Yes Frequency: Special Occasions Quant: 2
== END | disposition home or self-care (01) ==
LOC: PAIN 10:58
PROVIDERS: ATTEND Anesthesiology Pain Medicine
DX: M54.12 Radiculopathy, cervical region (principal); M79.602 Pain in left arm; G89.29 Other chronic pain; Z98.890 Other specified postprocedural states; Z79.899 Other long term (current) drug therapy; Z88.8 Allergy status to other drugs, medicaments and biological substances

== ENCOUNTER → 2021-03-10 | Outpatient (CLI) | payer OTHER | LOC: SJCVC 10:05 | PROVIDERS: ATTEND Internal Medicine Cardiovascular Disease | DX: R94.31 Abnormal electrocardiogram [ECG] [EKG] (principal); I45.4 Nonspecific intraventricular block; I25.10 Atherosclerotic heart disease of native coronary artery without angina pectoris; E78.00 Pure hypercholesterolemia, unspecified; R60.9 Edema, unspecified; I11.0 Hypertensive heart disease with heart failure; I50.9 Heart failure, unspecified; E78.5 Hyperlipidemia, unspecified; G47.30 Sleep apnea, unspecified; Z98.61 Coronary angioplasty status; Z98.890 Other specified postprocedural states; Z79.82 Long term (current) use of aspirin; Z79.899 Other long term (current) drug therapy; Z88.5 Allergy status to narcotic agent; Z88.8 Allergy status to other drugs, medicaments and biological substances ==